=== PATIENT | female | born 1995 | race Caucasian/White ===

== ENCOUNTER 2017-06-02 16:56 | Emergency (ER) | payer OTHER ==
[2017-06-02 17:05] VITALS: BP 127/88; PULSE 82; TEMP 98.6; BMI 24.0
[2017-06-02] MEDS ORDERED: predniSONE 20 MG TABLET (UD) PO ONE (18:03)
--- NOTE | 2017-06-02 18:08 | PDOC ---
History of Present Illness - General Chief Complaint: Rash Stated Complaint: RASH Time Seen by Provider: 06/02/17 17:37 History Source: Patient Exam Limitations: No Limitations - History of Present Illness Initial Comments: 06/02/17 18:03 22 yr female with itchy rash for 5 days and painful urination. Pt states the rash started on right thigh and is spreading. Pt also states she has pain at the end of her urine stream on and off for 2 months. Pt takes AZO pills that will help with pain . no fever or chills no and pain or back pain . 06/02/17 18:03 Severity: Yes: mild Location: reports: generalized Past History - Past Medical History Allergies/Adverse Reactions: Allergies Allergy/AdvReac Type Severity Reaction Status Date / Time No Known Allergies Allergy Verified 06/02/17 17:05 Home Medications: Ambulatory Orders Prednisone [Deltasone -] 20 mg PO DAILY #7 tablet 06/02/17 Other medical history: NONE - Immunization History Immunization Up to Date: Yes - Psycho/Social/Smoking Cessation Hx Anxiety: No Suicidal Ideation: No Smoking History: Never smoked Have you smoked in the past 12 months: No Hx Alcohol Use: No Drug/Substance Use Hx: No Substance Use Type: None *Physical Exam - Vital Signs Last Vital Signs Temp Pulse Resp BP Pulse Ox 98.6 F 82 20 127/88 100 06/02/17 17:02 06/02/17 17:02 06/02/17 17:02 06/02/17 17:02 06/02/17 17:02 - Physical Exam General Appearance: Yes: Nourished, Appropriately Dressed HEENT: positive: EOMI, LYNETTE Neck: positive: Supple. negative: Tender Respiratory/Chest: positive: Lungs Clear, Normal Breath Sounds Cardiovascular: positive: Regular Rhythm, Regular Rate Gastrointestinal/Abdominal: positive: Normal Bowel Sounds, Soft Musculoskeletal: positive: Normal Inspection Extremity: positive: Normal Capillary Refill, Normal Inspection, Normal Range of Motion Integumentary: positive: Normal Color, Dry, Warm, Rash (generalised faint maculopapular rash mild erythema , no pustules or lesions ) Neurologic: positive: Fully Oriented, Alert, Normal Mood/Affect, Normal Response , Motor Strength 5/5 Medical Decision Making - Medical Decision Making 06/02/17 18:05 cc: rash to arms, legs, breast back , unknown cause no sob no diff breathing or swallwing. Pt denies any change in foods, vitamins or supplements, no change in soap or detergent. will give prednisone (pt took benadryl last night) will check UA r/o infection stable vitals non toxic *DC/Admit/Observation/Transfer Diagnosis at time of Disposition: Rash and nonspecific skin eruption - Discharge Dispostion Disposition: HOME Condition at time of disposition: Good - Prescriptions Prescriptions: Prednisone [Deltasone -] 20 mg PO DAILY #7 tablet - Referrals Referrals: Lisette Vicente [Primary Care Provider] - Chrissy Keen MD [Staff Physician] - - Patient Instructions Additional Instructions: take prednisone as directed next dose tomorrow morning cool water to bathe apply a soothing lotion that contains aloe vera, for itchy skin (anything over the counter) continue to take Benadryl at bedtime to help with itching follow with your doctor or the [facility] if rash continues or worsens - Post Discharge Activity
[2017-06-02] MEDS ORDERED: predniSONE 20 MG TABLET (UD) ONE (18:11)
[2017-06-02 18:17] LABS: URINE APPEARANCE SLCLOUDY; URINE BILIRUBIN NEGATIVE (NEGATIVE); URINE BLOOD 2+ (NEGATIVE); URINE COLOR YELLOW; URINE GLUCOSE (UA) NEGATIVE (NEGATIVE); URINE KETONE NEGATIVE (NEGATIVE); URINE LEUK ESTERASE NEGATIVE (NEGATIVE); URINE NITRITE NEGATIVE (NEGATIVE); URINE PROTEIN NEGATIVE (NEGATIVE); URINE UROBILINOGEN NEGATIVE mg/dL (0.2-1.0)
[2017-06-02 18:25] LABS: URINE BACTERIA RARE /hpf (NONE SEEN); URINE MUCUS RARE; URINE RBC 11 /hpf (0-3); URINE WBC 3 /hpf (3-5)
== END 2017-06-02 18:54 | disposition home or self-care (01) ==
LOC: JERFT 16:56
DX: R21 Rash and other nonspecific skin eruption (principal)
CPT/HCPCS: 36415; 81003; 81015; 84703; 87491; 87591; 99281-25